=== PATIENT | female | born 1940 | race Caucasian/White ===

== ENCOUNTER 2016-08-06 12:11 | Emergency (ER) | payer MEDICARE, OTHER ==
[~2016-08-06] VITALS: Ht 165.1 cm; Wt 67.0 kg
[~2016-08-06 12:11] MED LIST: ALPR0.5T3 PO; BUSP15TA PO; DULO1CAP2 PO; GLIM1 PO; HYDR-4107 PO; LACTCAP8 PO; PRED10 PO; TEMA15CA PO
[2016-08-06 12:18] VITALS: BP 123/84; PULSE 105; RESP 24; O2SAT 95
--- NOTE | 2016-08-06 13:03 | PD ---
HPI Chief Complaint: Cardiac Complaint Time Seen by Provider: 13:03 Travel History International Travel<30 days: No Contact w/Intl Traveler<30days: No Traveled to known affect area: No History of Present Illness HPI 76-year-old female with a history of GERD, hiatal hernia, diabetes, anxiety presents to the emergency department for evaluation of epigastric discomfort for 2 days. Patient states she has had epigastric discomfort feeling like a band of pressure. States it is associated with decreased appetite and mild nausea. States she also has some lightheadedness. She does admit to feeling anxious. She denies any chest pain, shortness of breath, vomiting, diarrhea, constipation, bloody stool, cough or cold symptoms, numbness or tingling, weakness, fever, chills. The patient denies any history of cardiac disease or ND, states that she had a nuclear medicine stress test done in 2016 that was [address] PCP [address] Carbajal. [facility] Past Medical History Arthritis: Yes Asthma: No Anxiety: Yes Depression: No Heart Rhythm Problems: No Cancer: Yes (SKIN CANCER REMOVED FROM NOSE, NEAR LEFT EYE) Cardiovascular Problems: No High Cholesterol: Yes Chest Pain: No COPD: No Diabetes: Yes Patient Takes Glucophage: No Diminished Hearing: No Endocrine: Yes (GOITER multi nodular) Gastrointestinal Disorders: Yes (HIATAL HERNIA) Genitourinary: No Hepatitis: Yes (HEP A) Hiatal Hernia: Yes Immune Disorder: No Musculoskeletal: Yes ( polymyalgia rheumatica) Neurologic: Yes (both leg are weak) Psychiatric: Yes (anxiety,depression) Reproductive: No Respiratory: No Sleep Apnea: No Thyroid Disease: Yes Tetanus Vaccination: < 5 Years Influenza Vaccination: Yes Menopausal: Yes Past Surgical History AICD: No Eye Surgery: Yes (lyly cataract surgery) Gynecologic Surgery: Yes (HYSTERECTOMY) Hysterectomy: Yes Joint Replacement: No Pacemaker: No Other Surgery: Yes Social History Alcohol Use: Yes (occ) Tobacco Use: No Substance Use: No Allergies-Medications (Allergen,Severity, Reaction): Coded Allergies: Codeine (Verified Allergy, Intermediate, Rash, 08/06/16) Morphine (Verified Allergy, Unknown, NAUSEA, 08/06/16) Reported Meds & Prescriptions Reported Meds & Active Scripts Active Keflex (Cephalexin) 500 Mg Cap 500 Mg PO Q12H 7 Days Reported Prozac (Fluoxetine HCl) 20 Mg Cap 20 Mg PO DAILY Protonix (Pantoprazole Sodium) 40 Mg Tab 40 Mg PO DAILY Misty Root (Mitsy (Zingiber Officinalis)) 250 Mg Cap DAILY Flagyl (Metronidazole) 250 Mg Tab 250 Mg PO TID Alprazolam 0.5 Mg Tab 0.5 Mg PO Q8H PRN Amaryl (Glimepiride) 1 Mg Tab 1 Mg PO DAILY PRN Take with breakfast or first main meal Duloxetine DR (Duloxetine HCl) 30 Mg Capdr 30 Mg PO DAILY Prednisone 10 Mg Tab 10 Mg PO DAILY Review of Systems Except as stated in HPI: all other systems reviewed are Neg Physical Exam Narrative GENERAL: Well-nourished and well-developed female patient in no acute distress who is nontoxic appearing. SKIN: Warm and dry. HEAD: Normocephalic and atraumatic. EYES: No injection, drainage, or hyphema noted. PERRLA. EOMI. ENT: No nasal drainage noted. Oropharynx is clear. NECK: Supple and the trachea is midline. CARDIOVASCULAR: Regular rate and rhythm. RESPIRATORY: Breath sounds are equal bilaterally with no accessory muscle use, wheezing, rhonchi, or crackles. GASTROINTESTINAL: Abdomen is soft, non-tender, and nondistended. MUSCULOSKELETAL: No obvious deformities, swelling, cyanosis, or ecchymosis is present throughout the upper and lower extremities. Patient has full range of motion without any signs of neurovascular compromise. Strength 5/5 upper and lower extremities equal bilaterally. NEUROLOGICAL: Awake, alert, and oriented. Normal speech and gait. Cranial nerves are grossly intact. Data Data Last Documented VS Vital Signs Date Time Temp Pulse Resp B/P Pulse Ox O2 Delivery O2 Flow Rate FiO2 08/06/16 12:18 105 24 123/84 95 Orders Electrocardiogram (08/06/16 12:22) Complete Blood Count With Diff (08/06/16 13:01) Comprehensive Metabolic Panel (08/06/16 13:01) Magnesium (Mg) (08/06/16 13:01) Prothrombin Time / Inr (Pt) (08/06/16 13:01) Act Partial Throm Time (Ptt) (08/06/16 13:01) Troponin I (08/06/16 13:01) Chest, Single Ap (08/06/16 13:01) Ecg Monitoring (08/06/16 13:01) Bilateral Bp Monitoring (08/06/16 13:01) Iv Access Insert/Monitor (08/06/16 13:01) Oximetry (08/06/16 13:01) Sodium Chloride 0.9% Flush (Ns Flush) (08/06/16 13:15) Lipase (08/06/16 13:06) Ondansetron Inj (Zofran Inj) (08/06/16 13:15) Sodium Chloride 0.9% Flush (Ns Flush) (08/06/16 13:15) Al-Mag Hy-Si 40-40-4 Mg/Ml Liq (Mag-Al P (08/06/16 13:15) Lidocaine 2% Viscous (Xylocaine 2% Visco (08/06/16 13:15) Urinalysis - C+S If Indicated (08/06/16 13:16) Sodium Chlor 0.9% 1000 Ml Inj (Ns 1000 M (08/06/16 13:49) Lorazepam Inj (Ativan Inj) (08/06/16 14:00) Thyroid Stimulating Hormone (08/06/16 14:01) Urine Culture (08/06/16 14:20) Labs Laboratory Tests Test 08/06/16 08/06/16 13:10 14:20 White Blood Count 14.0 TH/MM3 Red Blood Count 4.90 MIL/MM3 Hemoglobin 14.6 GM/DL Hematocrit 43.3 % Mean Corpuscular Volume 88.5 FL Mean Corpuscular Hemoglobin 29.8 PG Mean Corpuscular Hemoglobin 33.7 % Concent Red Cell Distribution Width 13.8 % Platelet Count 316 TH/MM3 Mean Platelet Volume 8.0 FL Neutrophils (%) (Auto) 73.7 % Lymphocytes (%) (Auto) 18.1 % Monocytes (%) (Auto) 7.4 % Eosinophils (%) (Auto) 0.3 % Basophils (%) (Auto) 0.5 % Neutrophils # (Auto) 10.3 TH/MM3 Lymphocytes # (Auto) 2.5 TH/MM3 Monocytes # (Auto) 1.0 TH/MM3 Eosinophils # (Auto) 0.0 TH/MM3 Basophils # (Auto) 0.1 TH/MM3 CBC Comment DIFF FINAL Differential Comment Prothrombin Time 11.7 SEC Prothromb Time International 1.1 RATIO Ratio Activated Partial 25.7 SEC Thromboplast Time Sodium Level 139 MEQ/L Potassium Level 3.5 MEQ/L Chloride Level 104 MEQ/L Carbon Dioxide Level 23.2 MEQ/L Anion Gap 12 MEQ/L Blood Urea Nitrogen 20 MG/DL Creatinine 1.03 MG/DL Estimat Glomerular Filtration 52 ML/MIN Rate Random Glucose 105 MG/DL Calcium Level 9.6 MG/DL Magnesium Level 2.1 MG/DL Total Bilirubin 0.4 MG/DL Aspartate Amino Transf 16 U/L (AST/SGOT) Alanine Aminotransferase 25 U/L (ALT/SGPT) Alkaline Phosphatase 66 U/L Troponin I LESS THAN 0.02 NG/ML Total Protein 7.9 GM/DL Albumin 3.8 GM/DL Urine Color YELLOW Urine Turbidity CLEAR Urine pH 8.0 Urine Specific [place] 1.014 Urine Protein NEG mg/dL Urine Glucose (UA) NEG mg/dL Urine Ketones TRACE mg/dL Urine Occult Blood NEG Urine Nitrite NEG Urine Bilirubin NEG Urine Urobilinogen LESS THAN 2.0 MG/DL Urine Leukocyte Esterase MOD Urine WBC 8 /hpf Urine Bacteria RARE /hpf Microscopic Urinalysis Comment CULTURE INDICATED MDM Medical Decision Making Medical Screen Exam Complete: Yes Emergency Medical Condition: Yes Differential Diagnosis Gastritis versus reflux versus anxiety versus ACS unlikely Narrative Course 76-year-old female presents to the emergency department for evaluation of epigastric discomfort. Patient is afebrile, vital signs are stable. Physical examination is essentially unremarkable. A review of the MR shows that the patient was admitted to our chest pain center 5 months ago for same complaint and had negative cardiac enzymes. She had a nuclear medicine stress test as an outpatient January 2016 that she reports is unremarkable. She has a history of a reflux and hiatal hernia. We'll give the patient a GI cocktail and reassess while labs are pending. Chest x-ray shows small calcified granuloma but is otherwise unremarkable. CBC shows an elevated white blood cell count of 14. CMP shows mild renal insufficiency with a creatinine of 1.03, BUN 20, GFR 52. This is a pretty be near the patient's baseline compared to previous labs. Troponin is less than 0.02. Coags are unremarkable. Urinalysis shows trace ketones, moderate leukocyte esterase, 8 white blood cells , rare bacteria. The patient has a mild urinary tract infection and anxiety. She has been given Ativan 0.5 mg IV here in the ED which did improve her symptoms. She has been taking Xanax at home but feels this is not working and therefore we will change her from Xanax to Ativan. We'll prescribe her Keflex for her urinary tract infection. She is instructed to follow-up with her PCP. Patient verbalizes understanding and agreement with treatment plan. I discussed the case with my attending physician Dr. Concepcion who is aware of the patients history, physical examination findings, and treatment plan. Diagnosis Primary Impression: Anxiety Additional Impression: UTI (urinary tract infection) Qualified Code: N39.0 - Urinary tract infection without hematuria, site unspecified Referrals: Primary Care Physician Patient Instructions: General Instructions Additional Instructions: Stop taking Xanax. Begin taking prescription for Ativan. Follow-up with your Primary Care Physician. Return to the ED for any acute worsening of symptoms. Med/Other Pt SpecificInfo: Prescription(s) given Scripts Lorazepam (Ativan)0.5 Mg Tab0.5 Mg PO Q8H PRN (ANXIETY AND/OR AGITATION) #15 TAB Ref 0 Prov:Nette Concepcion MD 08/06/16 Cephalexin (Keflex)500 Mg [id number] Mg PO Q12H 7 Days Ref 0 Prov:Nette Concepcion MD 08/06/16 Disposition: 01 DISCHARGE HOME Condition: Stable Dalila Stanton Aug 06, 2016 13:03
[2016-08-06] MEDS ORDERED: LIDOCAINE VISCOUS 2% SOLN 15 ML UDC PO ONE (13:15)
[2016-08-06] MEDS ORDERED: ALUMINUM/MAGNESIUM/SIMETH 30 ML CUP PO ONE (13:15)
[2016-08-06] MEDS ORDERED: SODIUM CHLORIDE 0.9% FLUSH 5 ML FLUSH IVF PRN ×2 (13:15)
[2016-08-06] MEDS ORDERED: ONDANSETRON HCL 4 MG/2 ML VIAL IVP ONE (13:15)
[2016-08-06 13:19] LABS: AUTOMATED NEUTROPHIL # 10.3 TH/MM3 (1.8-7.7); BASOPHIL # 0.1 TH/MM3 (0-0.2); BASOPHIL % 0.5 % (0.0-2.0); EOSINOPHIL % 0.3 % (0.0-4.0); HEMATOCRIT 43.3 % (35.0-46.0); HEMO FLAGS DIFF FINAL; LYMPH % 18.1 % (9.0-44.0); LYMPHOCYTE # 2.5 TH/MM3 (1.0-4.8); MEAN CELL VOLUME 88.5 FL (80.0-100.0); MEAN CORPUSCULAR HEMOGLOBIN 29.8 PG (27.0-34.0); MEAN CORPUSCULAR HGB CONC 33.7 % (32.0-36.0); MONO % 7.4 % (0.0-8.0); NEUT % 73.7 % (16.0-70.0); PLATELET COUNT 316 TH/MM3 (150-450); RED CELL DISTRIBUTION WIDTH 13.8 % (11.6-17.2)
[2016-08-06] MEDS ORDERED: GING250C (13:20)
[2016-08-06] MEDS ORDERED: METR250 PO (13:20)
[2016-08-06] MEDS ORDERED: PROT40TA PO (13:21)
[2016-08-06] MEDS ORDERED: PROZ20CA11 PO (13:21)
--- NOTE | 2016-08-06 13:28 | RADRPT ---
EXAM DATE/TIME: 08/06/2016 13:03 [place] COMPARISON: CHEST SINGLE AP, March 27, 2016, 13:53. INDICATIONS : Shortness of breath. MEDICAL HISTORY : Diabetes mellitus type II. SURGICAL HISTORY : Kyphoplasty. ENCOUNTER: Initial ACUITY: 1 day PAIN SCORE: 0/10 LOCATION: chest FINDINGS: The heart is normal in size. There are calcified granulomata right lung base. The largest measures 1. 1 cm. The left lung is clear. The visualized bony structures are intact. CONCLUSION: Small calcified granuloma. No acute abnormality. Jesús Floyd MD on August 06, 2016 at 13:26 Board Certified Radiologist. This report was verified electronically.
[2016-08-06 13:29] LABS: APTT (PATIENT) 25.7 SEC (24.3-30.1); INTERNATIONAL NORMALIZED RATIO 1.1 RATIO; PROTHROMBIN TIME - PATIENT 11.7 SEC (9.8-11.6)
[2016-08-06 13:35] LABS: ALT (GPT) 25 U/L (10-53); ANION GAP 12 MEQ/L (5-15); AST (GOT) 16 U/L (15-37); BICARBONATE 23.2 MEQ/L (21.0-32.0); BLOOD UREA NITROGEN 20 MG/DL (7-18); CHLORIDE 104 MEQ/L (98-107); GLOMERULAR FILTRATION RATE 52 ML/MIN (>89); MAGNESIUM 2.1 MG/DL (1.5-2.5); POTASSIUM 3.5 MEQ/L (3.5-5.1); SODIUM (NA) 139 MEQ/L (136-145)
[2016-08-06 13:39] LABS: ALKALINE PHOSPHATASE 66 U/L (45-117); TOTAL BILIRUBIN ADULT 0.4 MG/DL (0.2-1.0)
[2016-08-06] MEDS ORDERED: SODIUM CHLOR 0.9% 1000 ML INJ 1,000 ML IV SCH (13:49)
[2016-08-06] MEDS ORDERED: LORazepam 2 MG/ML VIAL IV PUSH ONE (14:00)
[2016-08-06 14:52] LABS: BACTERIA, URINE RARE /hpf; BLOOD, URINE NEG (NEG); COMMENT (UR) CULTURE INDICATED; CULTURE IF INDICATED CULTURE INDICATED; GLUCOSE,URINE NEG (NEG); KETONE, URINE TRACE mg/dL (NEG); NITRITE,URINE NEG (NEG); URINE COLOR YELLOW (YELLW/STRAW)
[2016-08-06] MEDS ORDERED: CEPH-460 PO (15:01)
[2016-08-06] MEDS ORDERED: LORA-392 PO (15:03)
--- NOTE | 2016-08-06 15:36 | PD ---
Data Data Last Documented VS Vital Signs Date Time Temp Pulse Resp B/P Pulse Ox O2 Delivery O2 Flow Rate FiO2 08/06/16 12:18 105 24 123/84 95 Orders Electrocardiogram (08/06/16 12:22) Complete Blood Count With Diff (08/06/16 13:01) Comprehensive Metabolic Panel (08/06/16 13:01) Magnesium (Mg) (08/06/16 13:01) Prothrombin Time / Inr (Pt) (08/06/16 13:01) Act Partial Throm Time (Ptt) (08/06/16 13:01) Troponin I (08/06/16 13:01) Chest, Single Ap (08/06/16 13:01) Ecg Monitoring (08/06/16 13:01) Bilateral Bp Monitoring (08/06/16 13:01) Iv Access Insert/Monitor (08/06/16 13:01) Oximetry (08/06/16 13:01) Sodium Chloride 0.9% Flush (Ns Flush) (08/06/16 13:15) Lipase (08/06/16 13:06) Ondansetron Inj (Zofran Inj) (08/06/16 13:15) Sodium Chloride 0.9% Flush (Ns Flush) (08/06/16 13:15) Al-Mag Hy-Si 40-40-4 Mg/Ml Liq (Mag-Al P (08/06/16 13:15) Lidocaine 2% Viscous (Xylocaine 2% Visco (08/06/16 13:15) Urinalysis - C+S If Indicated (08/06/16 13:16) Sodium Chlor 0.9% 1000 Ml Inj (Ns 1000 M (08/06/16 13:49) Lorazepam Inj (Ativan Inj) (08/06/16 14:00) Thyroid Stimulating Hormone (08/06/16 14:01) Urine Culture (08/06/16 14:20) Labs Laboratory Tests Test 08/06/16 08/06/16 13:10 14:20 White Blood Count 14.0 TH/MM3 Red Blood Count 4.90 MIL/MM3 Hemoglobin 14.6 GM/DL Hematocrit 43.3 % Mean Corpuscular Volume 88.5 FL Mean Corpuscular Hemoglobin 29.8 PG Mean Corpuscular Hemoglobin 33.7 % Concent Red Cell Distribution Width 13.8 % Platelet Count 316 TH/MM3 Mean Platelet Volume 8.0 FL Neutrophils (%) (Auto) 73.7 % Lymphocytes (%) (Auto) 18.1 % Monocytes (%) (Auto) 7.4 % Eosinophils (%) (Auto) 0.3 % Basophils (%) (Auto) 0.5 % Neutrophils # (Auto) 10.3 TH/MM3 Lymphocytes # (Auto) 2.5 TH/MM3 Monocytes # (Auto) 1.0 TH/MM3 Eosinophils # (Auto) 0.0 TH/MM3 Basophils # (Auto) 0.1 TH/MM3 CBC Comment DIFF FINAL Differential Comment Prothrombin Time 11.7 SEC Prothromb Time International 1.1 RATIO Ratio Activated Partial 25.7 SEC Thromboplast Time Sodium Level 139 MEQ/L Potassium Level 3.5 MEQ/L Chloride Level 104 MEQ/L Carbon Dioxide Level 23.2 MEQ/L Anion Gap 12 MEQ/L Blood Urea Nitrogen 20 MG/DL Creatinine 1.03 MG/DL Estimat Glomerular Filtration 52 ML/MIN Rate Random Glucose 105 MG/DL Calcium Level 9.6 MG/DL Magnesium Level 2.1 MG/DL Total Bilirubin 0.4 MG/DL Aspartate Amino Transf 16 U/L (AST/SGOT) Alanine Aminotransferase 25 U/L (ALT/SGPT) Alkaline Phosphatase 66 U/L Troponin I LESS THAN 0.02 NG/ML Total Protein 7.9 GM/DL Albumin 3.8 GM/DL Urine Color YELLOW Urine Turbidity CLEAR Urine pH 8.0 Urine Specific [place] 1.014 Urine Protein NEG mg/dL Urine Glucose (UA) NEG mg/dL Urine Ketones TRACE mg/dL Urine Occult Blood NEG Urine Nitrite NEG Urine Bilirubin NEG Urine Urobilinogen LESS THAN 2.0 MG/DL Urine Leukocyte Esterase MOD Urine WBC 8 /hpf Urine Bacteria RARE /hpf Microscopic Urinalysis Comment CULTURE INDICATED MDM Supervised Visit with NAUN: Yes Narrative Course The history, exam, and medical decision-making in the associated midlevel provider note were completed with my assistance. I reviewed and agree with the findings presented. I attest that I had a [id number] encounter with the patient on the same day, and personally performed and documented my assessment and findings in the medical record. *My assessment and Findings: This is a 76-year-old female who presents to the emergency department with multiple nonspecific complaints including a bandlike abdominal pain around her epigastrium been going on for 3 years, as well as palpitations and nervousness feeling like her anxiety is under poor control. Patient reports that she recently discontinued all of her psychiatric medication because it wasn't helping her. She is taking Xanax and she took 2 doses of Xanax today but she continues to have poorly controlled anxiety. Her friend also reports that she took her blood pressure today and systolic was in the 160s and she was concerned so she came to the emergency Department. I don' t think this patient has an emergent etiology of her symptoms. I think she has poorly controlled anxiety. She was given 0.5 mg of IV Ativan and she feels somewhat better. Her labs are all reassuring. She does have a mild urinary tract infection. Patient will be discharged home with antibiotics and her Xanax will be switched Ativan since she seems to achieve better relief with this. Patient should follow-up with her primary care physician. On my assessment she's not a harm to herself or others. Diagnosis Primary Impression: Anxiety Additional Impression: UTI (urinary tract infection) Qualified Code: N39.0 - Urinary tract infection without hematuria, site unspecified Referrals: Primary Care Physician Patient Instructions: General Instructions, Anxiety (ED) Departure Forms: Tests/Procedures Additional Instruction: Stop taking Xanax. Begin taking prescription for Ativan. Follow-up with your Primary Care Physician. Return to the ED for any acute worsening of symptoms. Scripts Lorazepam (Ativan)0.5 Mg Tab0.5 Mg PO Q8H PRN (ANXIETY AND/OR AGITATION) #15 TAB Ref 0 Prov:Nette Concepcion MD 08/06/16 Cephalexin (Keflex)500 Mg Lew091 Mg PO Q12H 7 Days Ref 0 Prov:Nette Concepcion MD 08/06/16 Disposition: 01 DISCHARGE HOME Condition: Stable Nette Concepcion MD Aug 06, 2016 15:36
--- NOTE | 2016-08-06 22:17 | EKG ---
Date Performed: 08/06/2016 Time Performed: 12:31:14 PTAGE: 76 years EKG: Sinus rhythm PROBABLE OLD INFERIOR MYOCARDIAL INFARCTION Nonspecific ST and T wave abnormalities ABNORMAL ECG INT ERPRETATION BASED ON A DEFAULT AGE OF 40 YEARS PREVIOUS TRACING : 03/27/2016 19.45 Since previous tracing, no significant change noted DOCTOR: Warren Hester Interpretating Date/Time 08/06/2016 22:15:45
== END 2016-08-06 18:35 | disposition home or self-care (01) ==
LOC: NEPE 12:11
DX: F41.9 Anxiety disorder, unspecified (principal); N39.0 Urinary tract infection, site not specified; B96.89 Other specified bacterial agents as the cause of diseases classified elsewhere; Z79.899 Other long term (current) drug therapy
CPT/HCPCS: 71010; 80053; 81001; 83690; 83735; 84443; 84484; 85025; 85610; 85730; 87086; 93005; 96374; 96375; 99284; J2060; J2405; J7030

== ENCOUNTER → 2016-09-22 | Day surgery (SDC) | payer MEDICARE, OTHER ==
[~2016-09-22] MED LIST changes: +BUPIVACAINE HCL PF 0.5% 30 ML VIAL ONE; -BUSP15TA PO; +CEPH-460 PO; +GING250C; -HYDR-4107 PO; -LACTCAP8 PO; +LORA-392 PO; +METR250 PO; +PROPOFOL 200 MG/20 ML AMP IV ONE; +PROT40TA PO; +PROZ20CA11 PO; -TEMA15CA PO; +TRIAMCINOLONE ACETONIDE 40 MG/ML VIAL I-ARTICULR ONE; +methylPREDNISolone ACETATE 40 MG/ML VIAL I-ARTICULR ONE
--- NOTE | 2016-09-23 09:32 | M6 ---
cc: JAXSON STEPHEN M.D. DATE 09/22/2016 DATE OF 1940 PROCEDURE Fluoroscopically guided injection bilateral sacroiliac joints. History and physical was completed and signed. Consent was signed. Procedure site was marked. Medications were listed and reconciled. Pain score was recorded. Allergies were noted. Time out was taken. Fluoroscopy time was recorded where applicable. Sedation was administered or directed by Dr. Stephen. The patient was given oxygen. The patient was monitored by a registered nurse. Total procedure time was greater than 15 minutes. PROCEDURE NOTE IV was started. Blood pressure cuff, pulse oximeter and EKG were applied. The patient was placed in the prone position on a Ajrrod table, sedated with small amounts of propofol titrated to effect. Vital signs were monitored and remained stable throughout the procedure. The sacral area was prepped with alcohol and 10% Betadine solution and draped with sterile drapes. Fluoroscopy was used shooting from medial to lateral to clearly visualize the posterior joint line of the bilateral sacroiliac joints. Separate sterile 5-inch, 22-gauge spinal needles were advanced into the joints under fluoroscopic guidance. There was negative aspiration for blood or any other type of fluid and at each location the patient was given 2 mL of 0.5% Marcaine, 20 mg of Depo-Medrol and 20 mg of Kenalog. Following the procedure the patient was taken to the recovery room with stable vital signs, neurologically intact. She will be evaluated immediately and with followup to determine if she has a subjective decrease in her usual pain and a corresponding objective increase in her functional capabilities. W. MD WILMAR King/CHYNA /10:43 AM /9:19 AM
== END | disposition home or self-care (01) ==
LOC: PHSDC 08:38
PROVIDERS: ATTEND Pain Medicine Interventional Pain Medicine
DX: M54.5 Low back pain (principal)
CPT/HCPCS: 99152; G0260; J1030; J3301; 27096

== ENCOUNTER 2017-03-03 16:19 | Emergency (ER) | payer MEDICARE, OTHER ==
[~2017-03-03] VITALS: Ht 165.1 cm; Wt 90.0 kg
[~2017-03-03 16:19] MED LIST changes: -BUPIVACAINE HCL PF 0.5% 30 ML VIAL ONE; -CEPH-460 PO; -LORA-392 PO; -METR250 PO; -PROPOFOL 200 MG/20 ML AMP IV ONE; -TRIAMCINOLONE ACETONIDE 40 MG/ML VIAL I-ARTICULR ONE; -methylPREDNISolone ACETATE 40 MG/ML VIAL I-ARTICULR ONE
--- NOTE | 2017-03-03 16:38 | PD ---
Physical Exam Time Seen by Provider: 16:38 Narrative 76 y/o female sent by Dr. Serrato for evaluation of sob, weakness for months. seen at triage desk. Awaiting bed placement. [facility] Medical Record Reviewed: Yes Supervised Visit with NAUN: Manuel Salcido Mar 03, 2017 16:38
[2017-03-03 16:41] VITALS: BP 139/76; PULSE 90; RESP 20; TEMP 98.2; O2SAT 98
[2017-03-03] MEDS ORDERED: HYDR-2376 PO (18:11)
[2017-03-03] MEDS ORDERED: BUSP5TAB PO (18:11)
[2017-03-03 18:35] VITALS: RESP 16; O2SAT 98
[2017-03-03] MEDS ORDERED: SODIUM CHLORIDE 0.9% FLUSH 10 ML FLUSH IVF PRN (18:45)
[2017-03-03 19:00] VITALS: BP 141/72; PULSE 82; RESP 16; O2SAT 96
--- NOTE | 2017-03-03 19:10 | PD ---
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 Moore. She went to see him in his office as a follow-up visit when he told her that he was concerned for the possibility of pulmonary embolism and gave her choice whether to get the test done as an outpatient or to go over to the emergency room. She decided to come to the ER. She does not have any significant symptoms at this point. No history of chest pain. No history of fever or chills. Vital signs were stable. [facility] Past Medical History Narrative Medical List of his past medical, surgical, social and family history was reviewed from the nursing note. Arthritis: Yes Asthma: No Anxiety: Yes Depression: No Heart Rhythm Problems: No Cancer: Yes (SKIN CANCER REMOVED FROM NOSE, NEAR LEFT EYE) Cardiovascular Problems: Yes High Cholesterol: Yes Chest Pain: No COPD: No Diabetes: Yes Patient Takes Glucophage: No Diminished Hearing: No Endocrine: Yes (GOITER multi nodular) Gastrointestinal Disorders: Yes (HIATAL HERNIA) Genitourinary: No Hepatitis: Yes (HEP A) Hiatal Hernia: Yes Immune Disorder: No Musculoskeletal: Yes ( polymyalgia rheumatica) Neurologic: Yes (both leg are weak) Psychiatric: Yes (anxiety,depression) Reproductive: No Respiratory: No Sleep Apnea: No Thyroid Disease: Yes Influenza Vaccination: Yes Menopausal: Yes Past Surgical History AICD: No Eye Surgery: Yes (lyly cataract surgery) Gynecologic Surgery: Yes (HYSTERECTOMY) Hysterectomy: Yes Joint Replacement: No Pacemaker: No Other Surgery: Yes (cement injected to spine) Social History Alcohol Use: Yes (occ) Tobacco Use: No Substance Use: No Allergies-Medications (Allergen,Severity, Reaction): Coded Allergies: Codeine (Verified Allergy, Intermediate, Rash, 03/03/17) Morphine (Verified Allergy, Unknown, NAUSEA, 03/03/17) Comments List of his allergies reviewed from the nursing note. Reported Meds & Prescriptions Reported Meds & Active Scripts Active Reported Hydrocodone-Acetaminophen Unknown Strength Tab Unknown Dose PO Q6H PRN Prozac (Fluoxetine HCl) 20 Mg Cap 20 Mg PO DAILY Protonix (Pantoprazole Sodium) 40 Mg Tab 40 Mg PO DAILY Alprazolam 0.5 Mg Tab 0.5 Mg PO Q8H PRN Amaryl (Glimepiride) 1 Mg Tab 1 Mg PO DAILY PRN Take with breakfast or first main meal Prednisone 10 Mg Tab 10 Mg PO DAILY Narrative Medication List of his home medications reviewed from the nursing note. Review of Systems Except as stated in HPI: all other systems reviewed are Neg Physical Exam Narrative GENERAL: Awake, alert,elderly, no obvious distress SKIN: Focused skin assessment warm/dry. HEAD: Atraumatic. Normocephalic. EYES: Pupils equal and round. No scleral icterus. No injection or drainage. ENT: No nasal bleeding or discharge. Mucous membranes pink and moist. NECK: Trachea midline. No JVD. CARDIOVASCULAR: Regular rate and rhythm. No murmur appreciated. RESPIRATORY: No accessory muscle use. Clear to auscultation. Breath sounds equal bilaterally. GASTROINTESTINAL: Abdomen soft, non-tender, nondistended. Hepatic and splenic margins not palpable. MUSCULOSKELETAL: No obvious deformities. No clubbing. No cyanosis. Bilateral pedal edema. NEUROLOGICAL: Awake and alert. No obvious cranial nerve deficits. Motor grossly within normal limits. Normal speech. PSYCHIATRIC: Appropriate mood and affect; insight and judgment normal. Data Data Last Documented VS Vital Signs Date Time Temp Pulse Resp B/P Pulse Ox O2 Delivery O2 Flow Rate FiO2 03/03/17 19:00 82 16 141/72 96 Room Air 03/03/17 16:41 98.2 Orders Electrocardiogram (03/03/17 ) Basic Metabolic Panel (Bmp) (03/03/17 18:31) Ckmb (Isoenzyme) Profile (03/03/17 18:31) Complete Blood Count With Diff (03/03/17 18:31) Magnesium (Mg) (03/03/17 18:31) Prothrombin Time / Inr (Pt) (03/03/17 18:31) Act Partial Throm Time (Ptt) (03/03/17 18:31) Troponin I (03/03/17 18:31) Ecg Monitoring (03/03/17 18:31) Bilateral Bp Monitoring (03/03/17 18:31) Iv Access Insert/Monitor (03/03/17 18:31) Oximetry (03/03/17 18:31) Oxygen Administration (03/03/17 18:31) Sodium Chloride 0.9% Flush (Ns Flush) (03/03/17 18:45) Ct Pulmonary Angiogram (03/03/17 18:31) Iodixanol 320 Inj (Rad Ct) (Visipaque 32 (03/03/17 20:12) Labs Laboratory Tests Test 03/03/17 18:50 White Blood Count 9.7 TH/MM3 Red Blood Count 4.26 MIL/MM3 Hemoglobin 12.4 GM/DL Hematocrit 38.0 % Mean Corpuscular Volume 89.3 FL Mean Corpuscular Hemoglobin 29.0 PG Mean Corpuscular Hemoglobin 32.5 % Concent Red Cell Distribution Width 14.5 % Platelet Count 268 TH/MM3 Mean Platelet Volume 7.9 FL Neutrophils (%) (Auto) % Lymphocytes (%) (Auto) % Monocytes (%) (Auto) % Eosinophils (%) (Auto) % Basophils (%) (Auto) % Neutrophils # (Auto) TH/MM3 Lymphocytes # (Auto) TH/MM3 Monocytes # (Auto) TH/MM3 Eosinophils # (Auto) TH/MM3 Basophils # (Auto) TH/MM3 CBC Comment AUTO DIFF Differential Total Cells 100 Counted Neutrophils % (Manual) 74 % Band Neutrophils % 1 % Lymphocytes % 16 % Monocytes % 6 % Eosinophils % 1 % Basophils % 2 % Neutrophils # (Manual) 7.3 TH/MM3 Differential Comment FINAL DIFF MANUAL Platelet Estimate NORMAL Platelet Morphology Comment NORMAL Red Cell Morphology Comment NORMAL Prothrombin Time 11.8 SEC Prothromb Time International 1.1 RATIO Ratio Activated Partial 27.5 SEC Thromboplast Time Sodium Level 136 MEQ/L Potassium Level 3.5 MEQ/L Chloride Level 101 MEQ/L Carbon Dioxide Level 27.0 MEQ/L Anion Gap 8 MEQ/L Blood Urea Nitrogen 23 MG/DL Creatinine 1.20 MG/DL Estimat Glomerular Filtration 43 ML/MIN Rate Random Glucose 125 MG/DL Calcium Level 8.5 MG/DL Magnesium Level 2.1 MG/DL Total Creatine Kinase 46 U/L Troponin I LESS THAN 0.02 NG/ML MDM Medical Decision Making Medical Screen Exam Complete: Yes Emergency Medical Condition: Yes Medical Record Reviewed: Yes Differential Diagnosis Pulmonary embolism, congestive heart failure Narrative Course 7:10 PM awaiting for the blood test results and the CT pulmonary angiogram. This case was signed over to the oncoming ER physician. Procedures EKG Prior to Arrival: No LubnaRoney oreillyi R. MD Mar 03, 2017 19:10
[2017-03-03 19:24] LABS: MEAN CELL VOLUME 89.3 FL (80.0-100.0); MEAN CORPUSCULAR HGB CONC 32.5 % (32.0-36.0); PLATELET COUNT 268 TH/MM3 (150-450); RED BLOOD COUNT 4.26 MIL/MM3 (4.00-5.30); RED CELL DISTRIBUTION WIDTH 14.5 % (11.6-17.2); WHITE BLOOD COUNT 9.7 TH/MM3 (4.0-11.0)
[2017-03-03 19:28] LABS: HEMO FLAGS AUTO DIFF
[2017-03-03 19:34] LABS: APTT (PATIENT) 27.5 SEC (24.3-30.1); INTERNATIONAL NORMALIZED RATIO 1.1 RATIO; PROTHROMBIN TIME - PATIENT 11.8 SEC (9.8-11.6)
[2017-03-03 19:44] LABS: ANION GAP 8 MEQ/L (5-15); BLOOD UREA NITROGEN 23 MG/DL (7-18); CHLORIDE 101 MEQ/L (98-107); GLOMERULAR FILTRATION RATE 43 ML/MIN (>89); MAGNESIUM 2.1 MG/DL (1.5-2.5); POTASSIUM 3.5 MEQ/L (3.5-5.1); SODIUM (NA) 136 MEQ/L (136-145)
[2017-03-03 19:46] LABS: CREATINE KINASE 46 U/L (26-192)
[2017-03-03] MEDS ORDERED: IODIXANOL 320 MG/ML 50 ML VIAL (for Rad CT) IV ONE (20:12)
[2017-03-03 20:13] LABS: BANDS 1 % (0-6); BASOPHILS 2 % (0-2); EOSINOPHILS 1 % (0-4); NEUTROPHIL # MANUAL DIFF 7.3 TH/MM3 (1.8-7.7); PLATELET ESTIMATE SMEAR NORMAL (NORMAL); PLATELET MORPHOLOGY NORMAL (NORMAL); POLYS (SEG NEUTROPHILS) 74 % (16-70); SCAN/DIFF FINAL DIFF MANUAL; WBC DIFF SAMPLE 100
--- NOTE | 2017-03-03 20:36 | RADRPT ---
EXAM DATE/TIME: 03/03/2017 20:10 [place] COMPARISON: No previous studies available for comparison. INDICATIONS : Patient complains of shortness of breath, evaluate for pulmonary embolus. IV CONTRAST: 50 cc Visipaque (iodixanol) IV RADIATION DOSE: 23.07 CTDIvol (mGy) MEDICAL HISTORY : Diabetes mellitus type 1. Cardiovascular disease SURGICAL HISTORY : Hysterectomy. hiatal hernia ENCOUNTER: Initial ACUITY: 3 months PAIN SCALE: 0/10 LOCATION: Bilateral chest TECHNIQUE: Volumetric scanning of the chest was performed using a pulmonary embolism protocol MIP images were re constructed. Using automated exposure control and adjustment of the mA and/or kV according to patien t size, radiation dose was kept as low as reasonably achievable to obtain optimal diagnostic quality images. DICOM format image data is available electronically for review and comparison. Follow-up recommendations for incidentally detected pulmonary nodules are based at a minimum on nodul e size and patient risk factors according to Fleischner Society Guidelines. FINDINGS: PULMONARY ARTERIES: No filling defects are seen in the pulmonary arteries through the segmental level. LUNGS: Bilateral basilar atelectasis adjacent to the inferior hemidiaphragm, symmetric. Dominant calcified granuloma lower lateral right lung measuring 11 mm. No focal areas of consolidation seen. PLEURAE: There is no pleural thickening or pleural effusion. MEDIASTINUM: There is good visualization of the great vessels of the middle mediastinum. No evidence of mediastin al or hilar adenopathy/mass. Coronary artery calcifications. Tortuous course to the right subclavia n artery. CONCLUSION: 1. The study is negative for pulmonary embolism. 2. Bilateral lower lung atelectasis. David Lerma MD on March 03, 2017 at 20:31 Board Certified Radiologist. This report was verified electronically.
--- NOTE | 2017-03-03 20:51 | PD ---
Data Data Last Documented VS Vital Signs Date Time Temp Pulse Resp B/P Pulse Ox O2 Delivery O2 Flow Rate FiO2 03/03/17 19:00 82 16 141/72 96 Room Air 03/03/17 16:41 98.2 Orders Electrocardiogram (03/03/17 ) Electrocardiogram (03/03/17 18:31) Basic Metabolic Panel (Bmp) (03/03/17 18:31) Ckmb (Isoenzyme) Profile (03/03/17 18:31) Complete Blood Count With Diff (03/03/17 18:31) Magnesium (Mg) (03/03/17 18:31) Prothrombin Time / Inr (Pt) (03/03/17 18:31) Act Partial Throm Time (Ptt) (03/03/17 18:31) Troponin I (03/03/17 18:31) Ecg Monitoring (03/03/17 18:31) Bilateral Bp Monitoring (03/03/17 18:31) Iv Access Insert/Monitor (03/03/17 18:31) Oximetry (03/03/17 18:31) Oxygen Administration (03/03/17 18:31) Sodium Chloride 0.9% Flush (Ns Flush) (03/03/17 18:45) Ct Pulmonary Angiogram (03/03/17 18:31) Iodixanol 320 Inj (Rad Ct) (Visipaque 32 (03/03/17 20:12) Labs Laboratory Tests Test 03/03/17 18:50 White Blood Count 9.7 TH/MM3 Red Blood Count 4.26 MIL/MM3 Hemoglobin 12.4 GM/DL Hematocrit 38.0 % Mean Corpuscular Volume 89.3 FL Mean Corpuscular Hemoglobin 29.0 PG Mean Corpuscular Hemoglobin 32.5 % Concent Red Cell Distribution Width 14.5 % Platelet Count 268 TH/MM3 Mean Platelet Volume 7.9 FL Neutrophils (%) (Auto) % Lymphocytes (%) (Auto) % Monocytes (%) (Auto) % Eosinophils (%) (Auto) % Basophils (%) (Auto) % Neutrophils # (Auto) TH/MM3 Lymphocytes # (Auto) TH/MM3 Monocytes # (Auto) TH/MM3 Eosinophils # (Auto) TH/MM3 Basophils # (Auto) TH/MM3 CBC Comment AUTO DIFF Differential Total Cells 100 Counted Neutrophils % (Manual) 74 % Band Neutrophils % 1 % Lymphocytes % 16 % Monocytes % 6 % Eosinophils % 1 % Basophils % 2 % Neutrophils # (Manual) 7.3 TH/MM3 Differential Comment FINAL DIFF MANUAL Platelet Estimate NORMAL Platelet Morphology Comment NORMAL Red Cell Morphology Comment NORMAL Prothrombin Time 11.8 SEC Prothromb Time International 1.1 RATIO Ratio Activated Partial 27.5 SEC Thromboplast Time Sodium Level 136 MEQ/L Potassium Level 3.5 MEQ/L Chloride Level 101 MEQ/L Carbon Dioxide Level 27.0 MEQ/L Anion Gap 8 MEQ/L Blood Urea Nitrogen 23 MG/DL Creatinine 1.20 MG/DL Estimat Glomerular Filtration 43 ML/MIN Rate Random Glucose 125 MG/DL Calcium Level 8.5 MG/DL Magnesium Level 2.1 MG/DL Total Creatine Kinase 46 U/L Troponin I LESS THAN 0.02 NG/ML [facility] Medical Record Reviewed: Yes Supervised Visit with NAUN: No Narrative Course CBC & BMP Diagram 03/03/17 18:50 Tn < 0.02 CT pulmonary angiogram reveals no PE, bilateral lower lung atelectasis noted EKG sinus, rate 79, no ST elevation The patient is resting comfortably and feels better, is alert and in no distress. The patients results and examination findings were discussed. The repeat examination is unremarkable and benign. The history, exam, diagnostic testing, and current condition do not suggest any significant pathology to warrant further testing, continued ED treatment, admission, or surgical evaluation at this point. The vital signs have been stable. The patient does not have uncontrollable pain, intractable vomiting, or other significant symptoms. The patient's condition is stable and appropriate for discharge. The patient will pursue further outpatient evaluation with a primary care physician or other designated or consulting physician as indicated in the discharge instructions. The patient expressed understanding and was agreeable with this plan. Diagnosis Primary Impression: Shortness of breath Additional Impression: Atelectasis of both lungs Referrals: Olga Lidia Moore MD 2 days Additional Instruction: PLEASE FOLLOWUP WITH DR MOORE IN THE NEXT 2 DAYS. PLEASE RETURN TO THE ER IF YOU DEVELOP CHEST PAIN OR WORSENING SHORTNESS OF BREATH. A FEVER SHOULD PROMPT A RETURN TO THE ER RIGHT AWAY. Disposition: 01 DISCHARGE HOME Condition: Stable Jesús Hester MD Mar 03, 2017 20:51
--- NOTE | 2017-03-04 11:15 | EKG ---
Date Performed: 03/03/2017 Time Performed: 16:45:43 PTAGE: 76 years EKG: Sinus rhythm NORMAL ECG Since PREVIOUS TRACING , no significant change noted PREVIOUS TRACIN08/06/2016 12.31 DOCTOR: Sony Newton Interpretating Date/Time 03/04/2017 11:15:24
== END 2017-03-03 21:21 | disposition home or self-care (01) ==
LOC: NEPC 16:19
DX: R06.02 Shortness of breath (principal); J98.11 Atelectasis; M19.90 Unspecified osteoarthritis, unspecified site; F41.9 Anxiety disorder, unspecified; E78.00 Pure hypercholesterolemia, unspecified; E11.9 Type 2 diabetes mellitus without complications; M35.3 Polymyalgia rheumatica; F32.9 Major depressive disorder, single episode, unspecified; Z79.899 Other long term (current) drug therapy
CPT/HCPCS: 71275; 80048; 82550; 83735; 84484; 85007; 85027; 85610; 85730; 93005; 99285; Q9967

== ENCOUNTER → 2017-03-11 | Outpatient (CLI) | payer MEDICARE, OTHER ==
[~2017-03-11] MED LIST changes: +BUSP5TAB PO; -DULO1CAP2 PO; -GING250C; +HYDR-2376 PO
== END ==
LOC: CLAB 12:11
PROVIDERS: ATTEND Internal Medicine Cardiovascular Disease
DX: R07.9 Chest pain, unspecified (principal); R06.02 Shortness of breath
CPT/HCPCS: 36415; 83880